=== PATIENT | male | born 2000 | race African-American/Black ===

== ENCOUNTER 2020-05-07 12:08 | Emergency (ER) | payer BC ==
[~2020-05-07] VITALS: Ht 185.4 cm; Wt 63.5 kg
[~2020-05-07 12:08] MED LIST: TRIAMCINOLONE 080 G3 TOP
[2020-05-07] MEDS ORDERED: NAPROSYN500 MG PO (15:15)
[2020-05-07] MEDS ORDERED: TIZANIDINE HCL4 M2 PO (15:15)
[2020-05-07 15:28] VITALS: BP 149/89
== END 2020-05-07 15:31 | disposition home or self-care (01) ==
LOC: ER 12:08
DX: S39.012A Strain of muscle, fascia and tendon of lower back, initial encounter (principal); Z79.899 Other long term (current) drug therapy; X50.1XXA Overexertion from prolonged static or awkward postures, initial encounter; Y93.89 Activity, other specified; Y92.89 Other specified places as the place of occurrence of the external cause; Y99.8 Other external cause status

== ENCOUNTER 2021-02-07 03:35 | Emergency (ER) | payer BC ==
[~2021-02-07] VITALS: Ht 188 cm; Wt 65.8 kg
[~2021-02-07 03:35] MED LIST changes: +NAPROSYN500 MG PO; +TIZANIDINE HCL4 M2 PO
[2021-02-07 05:09] VITALS: BP 112/63
== END 2021-02-07 05:13 | disposition home or self-care (01) ==
LOC: ER 03:35
DX: U07.1 COVID-19 (principal); Z79.899 Other long term (current) drug therapy